=== PATIENT | female | born 1955 | race Hispanic/Latino ===

== ENCOUNTER 2018-05-11 19:49 | Emergency (ER) | payer BC, OTHER ==
[~2018-05-11] VITALS: Ht 157.5 cm; Wt 62.1 kg
[~2018-05-11 19:49] MED LIST: ASPIRIN ENTERI325 MG PO; BACTRIM DS TAB1 EACH PO; CIPRO500 MG PO; FLAGYL250 MG PO; LIPITOR20 MG PO; LOSARTAN POTAS100 MG PO; METRONIDAZOLE500 MG PO; NIFEDIPINE ER30 M1 PO; PEPCID20 MG PO; ULTRAM 50MG50 MG PO; ZOFRAN ODT4 MG PO; ZOFRAN ODT4 MG SL
[2018-05-11] MEDS ORDERED: SODIUM CHLORIDE 0.9% 1000ML 1,000 ML IV STA (20:06)
[2018-05-11] MEDS ORDERED: MORPHINE SULFATE INJ 4 MG/ML INJ IV STA (20:06)
[2018-05-11] MEDS ORDERED: ONDANSETRON HCL INJ 2 MG/ML VIAL IV STA (20:06)
[2018-05-11] MEDS ORDERED: ACETAMINOPHEN 325 MG TAB PO ONE (20:15)
[2018-05-11] MEDS ORDERED: DIATRIZOATE MEGL/DIATRIZOA SOD 30 ML BTL PO ONE ×2 (20:18→23:48)
[2018-05-11 20:41] LABS: BASOPHILS % 0.5 % (0.0-1.0); EOSINOPHILS % 0.3 % (0.0-6.0); HEMATOCRIT 39.3 % (34.2-44.1); HEMOGLOBIN 13.9 g/dL (12.0-16.0); LYMPHOCYTES # (AUTO) 2.1 (1.0-3.2); LYMPHOCYTES % 24.5 % (18.0-39.1); MEAN CORPUSCULAR HEMOGLOBIN 32.3 pg (28-32); MEAN CORPUSCULAR HGB CONC 35.4 g/dL (31-35); MEAN CORPUSCULAR VOLUME 91.2 fL (81-99); MONOCYTES # (AUTO) 0.5 (0.2-0.8); MONOCYTES % 5.9 % (4.4-11.3); NEUTROPHILS # (AUTO) 5.9 (2.1-6.9); NEUTROPHILS % 68.5 % (38.7-80.0); PLATELET COUNT 310 x10e3/uL (140-360); RED BLOOD COUNT 4.31 x10e6/uL (3.6-5.1); RED CELL DISTRIBUTION WIDTH 12.6 % (11.7-14.4)
[2018-05-11 21:03] LABS: INR 1.07; PROTHROMBIN TIME 13.1 seconds (11.9-14.5)
[2018-05-11 21:05] LABS: ALBUMIN 4.1 g/dL (3.5-5.0); ALBUMIN/GLOBULIN RATIO 1.3 (0.8-2.0); ANION GAP 14.9 mmol/L (8-16); CALCIUM 9.7 mg/dL (8.4-10.2); CREATININE, SERUM 1.15 mg/dL (0.57-1.11); POTASSIUM 3.9 mmol/L (3.5-5.1)
[2018-05-11 21:06] LABS: BILIRUBIN,URINE NEGATIVE (NEGATIVE); CLARITY,URINE CLEAR (CLEAR); COLOR,URINE YELLOW (YELLOW); KETONES,URINE NEGATIVE (NEGATIVE); LEUKOCYTE ESTERASE ,URINE TRACE (NEGATIVE); NITRITE,URINE NEGATIVE (NEGATIVE); PROTEIN,URINE DIPSTICK NEGATIVE (NEGATIVE); URINE UROBILINOGEN 0.2 mg/dL (0.2 - 1)
--- NOTE | 2018-05-11 21:07 | Diagnostic Imaging Report ---
EXAMINATION: CHEST SINGLE (PORTABLE) INDICATION: Stomach pain, nausea. COMPARISON: 12/15/2016 FINDINGS: TUBES and LINES: None. LUNGS: Lungs are well inflated. Lungs are clear. There is no evidence of pneumonia or pulmonary edema. PLEURA: No pleural effusion or pneumothorax. HEART AND MEDIASTINUM: The cardiomediastinal silhouette is unremarkable. BONES AND SOFT TISSUES: No acute osseous lesion. Soft tissues are unremarkable. UPPER ABDOMEN: No free air under the diaphragm. IMPRESSION: No acute thoracic abnormality. Signed by: Dr. Henry Sneed M.D. on 05/11/2018 9:04 PM
[2018-05-11 21:19] LABS: BACTERIA,URINE RARE /HPF; EPITHELIAL CELLS,URINE FEW /LPF; RBC,URINE 0-5 /HPF (0-5)
--- NOTE | 2018-05-11 22:15 | Diagnostic Imaging Report ---
EXAM: CT Abdomen and Pelvis WITH contrast INDICATION: Evaluation for diverticulitis COMPARISON: None. TECHNIQUE: Abdomen and pelvis were scanned utilizing a multidetector helical scanner from the lung base to the pubic symphysis after administration of IV contrast. Coronal and sagittal reformations were obtained. Routine protocol was performed. Scan was performed when during portal venous phase. IV CONTRAST: 100 mL of Isovue-370 ORAL CONTRAST: Gastrografin RADIATION DOSE: Total DLP: 256.45 mGy*cm Estimated effective dose: (DLP x 0.015 x size factor) mSv using radiation dose reduction techniques. COMPLICATIONS: None FINDINGS: LINES and TUBES: None. LOWER THORAX: Unremarkable HEPATOBILIARY: No focal hepatic lesions. No biliary ductal dilation. GALLBLADDER: No radio-opaque stones or sludge. No wall thickening. SPLEEN: No splenomegaly. PANCREAS: No focal masses or ductal dilatation. ADRENALS: No adrenal nodules KIDNEYS/URETERS: Kidneys enhance symmetrically. No hydronephrosis. 1.2 cm simple cyst in the upper pole of the right kidney. No stones. GI TRACT: No abnormal distention, wall thickening, or evidence of bowel obstruction. There are diverticula within the colon without evidence of diverticulitis. Appendix is normal. PELVIC ORGANS/BLADDER: Unremarkable. LYMPH NODES: No lymphadenopathy. VESSELS: There is mild atherosclerotic disease in the aorta and major arterial branches. PERITONEUM / RETROPERITONEUM: No free air or fluid. BONES: Unremarkable. SOFT TISSUES: Unremarkable. IMPRESSION: 1. No acute intra-abdominal or pelvic abnormality. 2. Specifically, no evidence of diverticulitis. Signed by: Dr. Henry Sneed M.D. on 05/11/2018 10:12 PM
[2018-05-11 23:37] VITALS: BP 156/84
[2018-05-11] MEDS ORDERED: SODIUM CHLORIDE 0.9% 50ML 50 ML ONE (23:48)
[2018-05-11] MEDS ORDERED: IOPAMIDOL 370 MG/ML 200 ML INFUS..BTL INJ ONE (23:48)
== END 2018-05-11 23:44 | disposition home or self-care (01) ==
LOC: ER 19:49
DX: R10.84 Generalized abdominal pain (principal); R11.0 Nausea; R19.7 Diarrhea, unspecified; N30.90 Cystitis, unspecified without hematuria; I10 Essential (primary) hypertension; Z87.19 Personal history of other diseases of the digestive system
CPT/HCPCS: 36415; 71045; 74177; 80053; 81001; 82150; 82550; 82553; 83605; 83690; 83880; 84484; 85025; 85610; 85730; 87040; 87086; 93005; 99284; J2270; J2405; J7030; Q9967

== ENCOUNTER 2018-12-02 15:29 | Observation (INO) | payer MEDICARE, OTHER ==
[~2018-12-02] VITALS: Ht 162.6 cm; Wt 64.1 kg
--- OUTSIDE RECORDS SUMMARY | 2018-12-02 15:31 | XMS REPORT ---
Author [facility] Address Unknown Phone Unavailable Care Team Providers Care Chart Picker Name Role Phone Ace RODRIGUEZ Unavailable Unavailable Problems This patient has no known problems. Allergies, Adverse Reactions, Alerts This patient has no known allergies or adverse reactions. Medications This patient has no known medications. Results Test Description Test Time Test Comments Text Results Atomic Results Result Comments CT ABDOMEN/PELVIS W 2018-05-11 22:08:00 [place] [address] Patient Name: DIVINE VILLATORO R MR #: [id number] : 1955 Age/Sex: 62/F Req #: [id number] Adm Physician: Ordered by: MADDI JENSEN OPERA SINGER Report #: [id number] Location: ER Room/Bed: Procedure: [id number] CT/CT ABDOMEN/PELVIS W Exam Date: Exam Time: REPORT STATUS: Signed EXAM: CT Abdomen and Pelvis WITH contrast INDICATION: Evaluation for diverticulitis COMPARISON: None. TECHNIQUE: Abdomen and pelvis were scanned utilizing a multidetector helical scanner from the lung base to the pubic symphysis after administration of IV contrast. Coronal and sagittal reformations were obtained. Routine protocol was performed. Scan was performed when during portal venous phase. IV CONTRAST: 100 mL of Isovue-370 ORAL CONTRAST: Gastrografin RADIATION DOSE: Total DLP: 256.45 mGy*cm Estimated effective dose: (DLP x 0.015 x size factor) mSv using radiation dose reduction techniques. COMPLICATIONS: None FINDINGS: LINES and TUBES: None. LOWER THORAX: Unremarkable HEPATOBILIARY: No focal hepatic lesions. No biliary ductal dilation. GALLBLADDER: No radio-opaque stones or sludge. No wall thickening. SPLEEN: No splenomegaly. PANCREAS: No focal masses or ductal dilatation. ADRENALS: No adrenal nodules KIDNEYS/URETERS: Kidneys enhance symmetrically. No hydronephrosis. 1.2 cm simple cyst in the upper pole of the right kidney. No stones. GI TRACT: No abnormal distention, wall thickening, or evidence of bowel obstruction. There are diverticula within the colon without evidence of diverticulitis. Appendix is normal. PELVIC ORGANS/BLADDER: Unremarkable. LYMPH NODES: No lymphadenopathy. VESSELS: There is mild atherosclerotic disease in the aorta and major arterial branches. PERITONEUM / RETROPERITONEUM: No free air or fluid. BONES: Unremarkable. SOFT TISSUES: Unremarkable. IMPRESSION: 1. No acute intra-abdominal or pelvic abnormality. 2. Specifically, no evidence of diverticulitis. Signed by: Dr. Henry Sneed M.D. on 05/11/2018 10:12 PM Dictated By: HENRY BERRY MD 11 Transcribed By: LILLIE on 05/11/182211 COPY TO: MADDI JENSEN NP CHEST SINGLE (PORTABLE) 2018-05-11 21:03:00 [place] [address] Patient Name: DIVINE VILLATORO MR #: [id number] : 1955 Age/Sex: 62/F Req #: [id number] Adm Physician: Ordered by: MADDI JENSEN NP Report #: [id number] Location: ER Room/Bed: Procedure: [id number] DX/CHEST SINGLE (PORTABLE) Exam Date: 05/11/18 Exam Time: 2029 REPORT STATUS: Signed EXAMINATION: CHEST SINGLE (PORTABLE) INDICATION: Stomach pain, nausea. COMPARISON: 12/15/2016 FINDINGS: TUBES and LINES: None. LUNGS: Lungs are well inflated. Lungs are clear. There is no evidence of pneumonia or pulmonary edema. PLEURA: No pleural effusion or pneumothorax. HEART AND MEDIASTINUM: The cardiomediastinal silhouette is unremarkable. BONES AND SOFT TISSUES: No acute osseous lesion. Soft tissues are unremarkable. UPPER ABDOMEN: No free air under the diaphragm. IMPRESSION: No acute thoracic abnormality. Signed by: Dr. Henry Sneed M.D. on 05/11/2018 9:04 PM Dictated By: HENRY BERRY MD 03 Transcribed By: LILLIE on 05/11/182103 COPY TO: MADDI JENSEN NP
--- OUTSIDE RECORDS SUMMARY | 2018-12-02 15:31 | XMS REPORT | Encounter Summary ---
Author Organization Unknown Address [address] [place] [id number] Phone [phone] Care Team Providers Care Department Editor Name Role Phone Dr. Wade Olivo 3 [phone] Walt Gimenez MD 2 [phone] Kevin Rios 107 [phone] Reason for Visit sore throat; UTI; body aches Instructions 1. Upper respiratory infection Kenalog 40 mg/mL suspension for injection Tessalon Perles 100 mg capsule 2. Acute urinary tract infection urinalysis, dipstick urinalysis complete, reflex culture ciprofloxacin 500 mg tablet 3. Influenza vaccination declined 4. Immunization refused 5. Body mass index 25-29 - overweight aprenda acerca del peso saludable - [learning about healthy weight] 6. Screening for malignant neoplasm of cervix gynecology referral 7. Fever rapid strep group A, throat rapid flu (A+B) Discussion Note: None recorded. Plan of Care Reminders Provider Appointments None recorded. Lab Urinalysis, Dipstick 11/29/2018 [facility] [place] Rapid Strep Group a, Throat 11/29/2018 [facility]) [place] Rapid Flu (A+B) 11/29/2018 [facility] Urinalysis Complete, Reflex Culture 11/29/2018 [facility] Laboratory Referral Gynecology Referral 11/29/2018 Procedures None recorded. Surgeries None recorded. Imaging None recorded. Medications Name Start Date amlodipine 5 mg-benazepril 20 mg capsule Take 1 capsule every day by oral route. ciprofloxacin 500 mg tablet Take 1 tablet every 12 hours by oral route as directed for 10 days. fenofibrate nanocrystallized 145 mg tablet Take 1 tablet every day by oral route. Tessalon Perles 100 mg capsule Take 1 capsule 3 times a day by oral route as needed for 10 days. Medications Administered None recorded. Vitals Height Weight BMI Blood Pressure 5 ft 1.5 in 138.6 lbs 25.8 kg/m2 (1) 142/90 mm[Hg] (2) 118/80 mm[Hg] Lab Results None recorded. Allergies Code Code System Name Reaction Severity Status Onset NKDA Problems Name Status Onset Date Source Primary Hypertriglyceridemia Active Hypertensive Disorder Active Numbness Active External Procedures Date Name Performed by 09/24/2017 Hysterectomy (Total) Information not available 09/24/2015 Colonoscopy with Biopsy Information not available Vaccine List Vaccine Type influenza, unspecified formulation 06/19/2016 Social History Smoking Status Never Smoker Past Encounters 11/29/2018 Upper Respiratory Infection; Acute Urinary Tract Infection; Influenza Vaccination Declined; Immunization Refused; Body Mass Index 25-29 - Overweight; Screening for Malignant Neoplasm of Cervix; Fever Wade Jan Lee MD: [address] [place] [address], Ph. History of Present Illness Note:Pt is complaining of runny nose,nasal congestion, sore throat and fever not quantified since 3 days ago. Denies cough, sob, wheezing or chest pain.<div>She is also complaining of dysuria, urinary frequency, urgency and suprapubic pain since 3 days ago. Denies hematuria.</div> Review of Systems:ROS as noted in the HPI Review of Systems None recorded. Physical Exam General Adult Exam (male) Reported By: Patient Constitutional: General Appearance: healthy-appearing. Level of Distress: NAD Eyes: Lids and Conjunctivae: non-injected, no discharge. EOM: EOMI ENMT: Ears: TMs clear. Nose: nares non-patent, nasal discharge, post nasal drip. Lips, Teeth, and Gums: no mouth or lip ulcers. Oropharynx: moist mucous membranes, no exudates, erythema Neck: Neck: supple, trachea midline. Lymph Nodes: cervical LAD. Thyroid: no enlargement, non-tender Lungs: Auscultation: breath sounds normal Cardiovascular: Heart Auscultation: RRR, normal S1, normal S2, no murmurs. Neck vessels: no carotid bruits Abdomen: Inspection and Palpation: soft, non-distended, no guarding, no rebound tenderness, no CVA tenderness, suprapubic tenderness. Liver: non-tender, no hepatomegaly. Spleen: non-tender, no splenomegaly Neurologic: Gait and Station: normal gait Skin: Inspection and palpation: no rash, no lesions
[2018-12-02 16:09] LABS: BASOPHILS % 0.5 % (0.0-1.0); EOSINOPHILS % 0.1 % (0.0-6.0); HEMATOCRIT 45.8 % (34.2-44.1); HEMOGLOBIN 15.8 g/dL (12.0-16.0); LYMPHOCYTES # (AUTO) 1.6 (1.0-3.2); LYMPHOCYTES % 21.3 % (18.0-39.1); MEAN CORPUSCULAR HEMOGLOBIN 31.8 pg (28-32); MEAN CORPUSCULAR HGB CONC 34.5 g/dL (31-35); MEAN CORPUSCULAR VOLUME 92.2 fL (81-99); MONOCYTES # (AUTO) 0.4 (0.2-0.8); MONOCYTES % 5.8 % (4.4-11.3); NEUTROPHILS # (AUTO) 5.4 (2.1-6.9); NEUTROPHILS % 71.8 % (38.7-80.0); PLATELET COUNT 340 x10e3/uL (140-360); RED BLOOD COUNT 4.97 x10e6/uL (3.6-5.1); RED CELL DISTRIBUTION WIDTH 13.7 % (11.7-14.4)
[2018-12-02 16:23] LABS: INR 0.8; PARTIAL THROMBOPLASTIN TIME 27.6 seconds (23.8-35.5); PROTHROMBIN TIME 11.5 seconds (11.9-14.5)
[2018-12-02 16:32] LABS: ALBUMIN 4.4 g/dL (3.5-5.0); ALBUMIN/GLOBULIN RATIO 1.2 (0.8-2.0); ANION GAP 14.6 mmol/L (8-16); CALCIUM 10.5 mg/dL (8.4-10.2); CREATININE, SERUM 0.96 mg/dL (0.57-1.11); POTASSIUM 3.6 mmol/L (3.5-5.1)
[2018-12-02 17:23] LABS: BILIRUBIN,URINE NEGATIVE (NEGATIVE); CLARITY,URINE SL CLOUDY (CLEAR); COLOR,URINE YELLOW (YELLOW); KETONES,URINE NEGATIVE (NEGATIVE); LEUKOCYTE ESTERASE ,URINE TRACE (NEGATIVE); NITRITE,URINE NEGATIVE (NEGATIVE); PROTEIN,URINE DIPSTICK NEGATIVE (NEGATIVE); URINE UROBILINOGEN 0.2 mg/dL (0.2 - 1)
[2018-12-02 17:35] LABS: BACTERIA,URINE MANY /HPF; WBC,URINE (MAN) 0-5 /HPF (0-5)
--- NOTE | 2018-12-02 17:40 | Diagnostic Imaging Report ---
Exam: Head CT without contrast History: Mini strokes Comparison studies: No prior exams are available on the PACS for comparison at the time of dictation. Technique: Axial images were obtained from the skull base to the vertex. Coronal and sagittal images reconstructed from the axial data. Dose modulation, iterative reconstruction, and/or weight based adjustment of the mA/kV was utilized to reduce the radiation dose to as low as reasonably achievable. Radiation dose: Total DLP: 728 mGy*cm. Estimated effective dose: DLP x 0.015 Intravenous contrast: None Findings: Scalp: No abnormalities. Bones: No fractures, blastic or lytic lesions. Brain sulci: Appropriate for age. Ventricles: Normal in size and configuration. No hydrocephalus. Extra-axial spaces: No masses, no fluid collection. Parenchyma: No abnormal densities. No masses, acute hemorrhage, acute or chronic vascular insults. Sellar/suprasellar region: No abnormalities. Craniocervical junction: Patent foramen magnum. No Chiari one malformation. Incidental findings: Atherosclerotic calcifications in the carotid siphons. IMPRESSION: No intracranial abnormalities. Signed by: Dr. Antolin Mckeon M.D. on 12/02/2018 5:37 PM
[2018-12-02] MEDS ORDERED: SODIUM CHLORIDE FLUSH 10 ML SYR INJ PRN (18:30)
--- NOTE | 2018-12-02 23:00 | NUR ---
S/W BRAD HARDY AT DR[facility]. ORDER RECEIVED FOR BP MEDS.
[2018-12-02 23:15] VITALS: BP 147/76
[2018-12-02] MEDS ORDERED: HYDRALAZINE HCL 20 MG/ML VIAL IV PRN (23:15)
--- NOTE | 2018-12-02 23:15 | NUR ---
patient is a new admit that arrived via wheelchair. patient is awake and talking. patient has been helped into the bed. bed is in lowest position and call gerardo is within reach. will continue to monitor patient.
[2018-12-03] VITALS (7 sets, daily range): BP systolic 131–160; BP diastolic 72–80
[2018-12-03] MEDS ORDERED: INFLUENZA VIRUS VAC SPLIT INJ 0.5 ML SYR IM ONE (05:45)
[2018-12-03] MEDS ORDERED: PNEUMOCOCCAL VACCINE POLYVALENT 23 MCG/0.5 ML VIAL IM ONE (06:00)
--- NOTE | 2018-12-03 06:04 | NUR ---
patient has been given pneumococall vaccine per facility policy. vaccine given in right deltoid muscle.
--- NOTE | 2018-12-03 07:15 | NUR ---
patient has been given flu shot in left deltoid muscle.
[2018-12-03] MEDS ORDERED: SODIUM CHLORIDE 0.9% 1000ML 1,000 ML ONE (08:14)
[2018-12-03] MEDS ORDERED: CEFTRIAXONE SOD 1 GM VIAL IV SCH (09:30)
[2018-12-03] MEDS: ASPIRIN 325 MG TAB EC PO SCH (09:40)
[2018-12-03] MEDS ORDERED: ACETAMINOPHEN 325 MG TAB PO PRN (09:45)
[2018-12-03] MEDS ORDERED: ONDANSETRON HCL INJ 2MG/ML 2ML 2 MG/ML VIAL IV PRN (09:45)
[2018-12-03] MEDS ORDERED: ACETAMINOPHEN/CODEINE 300MG - 30MG TAB PO PRN (10:00)
[2018-12-03 10:27] LABS: CREATINE KINASE MB 0.8 ng/mL (0-5.0)
[2018-12-03] MEDS: CEFTRIAXONE SOD 1 GM/NS 50 ML 50 ML IV SCH (11:00)
[2018-12-03] MEDS ORDERED: SODIUM CHLORIDE 0.9% 250ML 250 ML ONE (11:32)
--- NOTE | 2018-12-03 11:44 | Diagnostic Imaging Report ---
Examination: MRI BRAIN WITHOUT CONTRAST History: Numbness and weakness of the right side. TIA. Comparison studies: Head CT performed December 02, 2018. Technique: Sagittal T2; axial DWI, FLAIR, GRE or SWI, T1, Coronal FLAIR. Intravenous contrast: None Findings: Scalp: No abnormal signal. No masses. Bone marrow: Normal in signal intensity. Brain volume: Adequate for age. No volume loss. Ventricles: Normal in size and configuration. No hydrocephalus. Extra-axial spaces: No abnormalities. Parenchyma: No masses, hemorrhage, acute or chronic vascular insults. Suprasellar and sellar region: Partially CSF filled sella. Craniocervical junction: No abnormalities. The foramen magnum is patent. No Chiari malformations. Vessels: Normal flow-voids in the arteries and sinuses. Additional findings:None. IMPRESSION: No acute intracranial abnormalities, specifically, no acute infarct. Signed by: Dr. Doreen Monique M.D. on 12/03/2018 11:41 AM
[2018-12-03] MEDS ORDERED: LOSARTAN POTASSIUM 100 MG TAB PO SCH (12:30)
[2018-12-03] MEDS: FAMOTIDINE 20 MG TAB PO SCH (17:53)
--- NOTE | 2018-12-03 19:00 | NUR ---
received report from day nurse. patient is resting comfortably in bed. bed is in lowest position and call gerardo is within reach. will continue to monitor patient.
[2018-12-03] MEDS ORDERED: ATORVASTATIN 40 MG TAB PO SCH (21:00)
[2018-12-03] MEDS: NIFEDIPINE CR 30 MG TAB PO SCH (22:24)
[2018-12-04] VITALS: BP 134/80
--- NOTE | 2018-12-04 02:08 | Consultation ---
DATE OF CONSULTATION: 12/03/2018 Neurology Consult Note HISTORY OF PRESENT ILLNESS: Ms. Latham is a 62-year-old ijfod-lurg-rzdjxbqz woman with past medical history significant for hypertension and hyperlipidemia, admitted to [facility] on December 02, 2018, with symptoms suspicious for transient ischemic attack. On the day of admission, the patient experienced the abrupt onset of dizziness, which is further described as lightheadedness, nausea, numbness over the right side of the face and right arm, and right leg weakness. Ms. Latham does not report a visual field cut or other disturbance, dysarthria, or aphasia associated with the above symptoms. She does not report confusion associated with the above symptoms. The patient does endorse poor balance with gait impairment. The above-described symptoms lasted for approximately 30 minutes, then spontaneously resolved. Ms. Latham telephones her primary care physician regarding these symptoms. She was instructed to proceed to the emergency center at [facility] for further evaluation of her symptoms. While sitting in the waiting room at [facility], the patient experienced a recurrence of the above symptoms. The duration of the symptoms is unknown. Ms. Latham does report having a mild diffuse headache yesterday. Upon arrival in the emergency center, the patient was afebrile with a blood pressure of 149/105 mmHg and a pulse of 88 beats per minute. The patient's neurological examination was documented as being nonfocal. While in the emergency center, Ms. Latham underwent a CT of the brain without contrast. This study did not reveal evidence of recent large territorial ischemia or hemorrhage. Ms. Latham was admitted to [facility] under observation status for further evaluation and treatment. Ms. Latham was previously taking aspirin 325 mg by mouth daily. However, due to recent gastrointestinal symptoms, her primary care doctor instructed her to discontinue this medication pending an esophagogastroduodenoscopy. Ms. Latham has not taken aspirin in approximately 3 weeks. REVIEW OF SYSTEMS: Nausea, numbness over the right side of the face, numbness over the right arm, weakness of the right leg, impairment of balance and gait, dizziness which is further described as lightheadedness, and headache. Otherwise, a 12-point review of systems is negative. PAST MEDICAL HISTORY: Hypertension, hyperlipidemia, gastroesophageal reflux disease. PAST SURGICAL HISTORY: Suspension of the uterus. PAST HOSPITALIZATIONS: Surgeries/procedures as listed, childbirth x4, hypertensive emergency in 2018. FAMILY MEDICAL HISTORY: Hypertension and hyperlipidemia. The patient's father and mother are both from coronary artery disease with myocardial infarctions. Ms. Latham has a sister who is alive, but has coronary artery disease status post CABG as well as right carotid artery stenosis status post right carotid endarterectomy. Ms. Latham has other siblings, 3 brothers and 3 sisters, who are alive and healthy. The patient has 4 children, all girls, who are alive and healthy. SOCIAL HISTORY: Ms. Latham is . She is retired. The patient does not report current or prior tobacco, alcohol, or recreational drug use. HOME MEDICATIONS: Nifedipine ER 30 mg by mouth every 12 hours, losartan 50 mg by mouth daily, atorvastatin 40 mg by mouth at bedtime daily, Pepcid 20 mg by mouth twice daily. ALLERGIES: NO KNOWN DRUG ALLERGIES. NO KNOWN FOOD ALLERGIES. NO KNOWN ALLERGIES TO LATEX. NO KNOWN ALLERGIES TO IODINE OR OTHER CONTRAST MATERIALS. PHYSICAL EXAMINATION: VITAL SIGNS: Height 64 inches, weight 140 pounds, BMI 24.0 kg/m2, blood pressure 160/77 mmHg, pulse 82 beats per minute, respiratory rate 18 breaths per minute, oxygen saturation 95% on room air. GENERAL: The patient is awake and alert, does not appear distressed. HEENT: Normocephalic, atraumatic. Pupils are equal, round, and reactive to light. Moist mucous membranes. NECK: Supple. No appreciable thyromegaly. No appreciable carotid bruits. CARDIOVASCULAR: S1, S2, regular rate and rhythm. No murmurs, rubs, or gallops. RESPIRATORY: Clear to auscultation bilaterally. No wheezes, rhonchi, or rales. EXTREMITIES: The skin is warm and dry. No clubbing, cyanosis, or edema. The posterior tibial and dorsalis pedis pulses are 2+ and symmetric. SKIN: No rashes or lesions. NEUROLOGIC: Memory/Attention: The patient is awake and alert, oriented to person, place, time, and situation. Cranial Nerves: Cranial nerve I - not tested. Cranial nerve II, III, IV and - pupils are equal and round, reactive briskly to light (from 4 mm to 2 mm). Extraocular movements intact. No nystagmus. Cranial nerve V - sensation to light touch and pinprick is intact in the bilateral V1 through V3 distributions. Strength in the temporalis and masseter muscles are within normal limits. Cranial nerve VII - the face is symmetric as are all facial movements. Strength is within normal limits. Cranial nerve VIII - hearing is intact to finger rub bilaterally. Cranial nerve IX, X - the soft palate elevates equally and symmetrically. Cranial nerve XI - normal strength to the bilateral sternocleidomastoid and trapezius muscles. Cranial nerves XII - the tongue protrudes to midline and moves symmetrically from side to side. Strength: Bulk is normal. Strength is 5/5 in the bilateral deltoids, biceps, triceps, wrist flexors and extensors, finger flexors and extensors, intrinsic hand muscles, hip flexors, knee flexors and extensors, ankle dorsiflexion and plantar flexion, and intrinsic foot muscles. Tone is normal. DTRs: Deep tendon reflexes are 1+ and symmetric at the triceps, biceps, brachioradialis, patellas, and Achilles. Plantar responses are flexor bilaterally. Sensation: Sensation is intact to light touch and pinprick in both arms and both legs. Cerebellar: Yzekaf-rada-kbbukj and heel-kelsey movements are intact without dysmetria or other impairment. Gait: Deferred. Speech: Spontaneous speech is normal without appreciable dysarthria or aphasia. Repetition is intact. Involuntary movements: None. Pronator Drift: None. LABORATORY DATA: A comprehensive metabolic panel is significant for an estimated GFR of 59, an elevated serum glucose of 145, a mildly elevated serum calcium of 10.5, an elevated total protein of 8.2, and an elevated globulin of 3.8. Cardiac enzymes are negative x1. The CBC with differential and platelets is unremarkable. PT is 11.5. INR is 0.80. PTT is 27.6. A urinalysis is significant for slightly cloudy urine with 1+ blood, trace leukocyte esterase, and many urine bacteria. A urine culture is pending. DIAGNOSTIC STUDIES: CT of the brain without contrast 12/02/2018: On my review, there is no evidence of recent large territorial ischemia, hemorrhage, mass, or mass effect. Cerebral volumes are appropriate for age. There is no evidence of chronic small vessel ischemic disease. Electrocardiogram of 12/02/2018: Sinus rhythm at 76 beats per minute with a prolonged QT interval. Echocardiogram of 12/03/2018: Ejection fraction of 55% to 60%. Trace aortic insufficiency and mitral regurgitation. Bilateral carotid artery ultrasound with Doppler of 12/03/2018: There is no atherosclerosis in the right carotid artery system. There is atherosclerosis without hemodynamically significant stenosis in the left internal carotid artery. Flow is antegrade in the bilateral vertebral arteries. MRI of the brain without contrast of 12/03/2018: On my review, there is no evidence of recent or remote large territorial ischemia, hemorrhage, mass, or mass effect. Cerebral volumes are appropriate for age. There are a few scattered, nonspecific T2/FLAIR hyperintense foci of the supratentorial deep white matter compatible with mild chronic small vessel ischemic disease. ASSESSMENT AND PLAN: Ms. Latham is a 62-year-old vkspv-dfhx-zzeigthq woman with vascular risk factors, off antiplatelet therapy for approximately 3 weeks, admitted to [facility] on December 02, 2018, with a transient ischemic attack. At present, the patient's neurological examination is nonfocal. The patient's laboratory data and other diagnostic studies have been reviewed and are documented above. RECOMMENDATIONS: Are as follows: 1. A lipid panel and hemoglobin A1c will be ordered to complete stroke evaluation. 2. Continue treatment with aspirin 325 mg by mouth daily for stroke prophylaxis. 3. The patient's goal blood pressure is less than 140/90 mmHg. Treatment with the patient's home antihypertensive medications will be resumed. Monitor vital signs per unit protocol and adjust medications accordingly. 4. The patient's goal total cholesterol is less than 200 with an LDL of less than 70. Follow up the results of the lipid panel. In the interim, treatment with the patient's home medication of atorvastatin 40 mg by mouth at bedtime daily will be continued. 5. The patient's goal hemoglobin A1c is less than 7.0. Follow up this result. Tight glycemic control is recommended while the patient is hospitalized. 6. Speech and Physical Therapy consultations will be deferred as the patient has no current deficits. 7. GI prophylaxis with Pepcid 20 mg by mouth twice daily with meals. DVT prophylaxis with Lovenox 40 mg subcutaneously daily. 8. Defer treatment of the remaining medical comorbidities to the primary and other services following the patient. 9. Anticipated discharge to home with no needs on December 04, 2018. Thank you for this consultation. I will continue to follow the patient while she remains in the hospital. TIME SPENT: 50 minutes. Jerilyn Virgen MD CP/LUDMILA /[id number] MTDD
[2018-12-04 04:00] VITALS: BP 129/64
[2018-12-04 05:43] LABS: BASOPHILS # (AUTO) 0.1 (0.0-0.1); BASOPHILS % 0.9 % (0.0-1.0); EOSINOPHILS % 0.6 % (0.0-6.0); HEMATOCRIT 41.3 % (34.2-44.1); HEMOGLOBIN 14.1 g/dL (12.0-16.0); LYMPHOCYTES # (AUTO) 1.7 (1.0-3.2); LYMPHOCYTES % 24.5 % (18.0-39.1); MEAN CORPUSCULAR HEMOGLOBIN 31.7 pg (28-32); MEAN CORPUSCULAR HGB CONC 34.1 g/dL (31-35); MEAN CORPUSCULAR VOLUME 92.8 fL (81-99); MONOCYTES # (AUTO) 0.6 (0.2-0.8); MONOCYTES % 8.3 % (4.4-11.3); NEUTROPHILS # (AUTO) 4.5 (2.1-6.9); PLATELET COUNT 279 x10e3/uL (140-360); RED BLOOD COUNT 4.45 x10e6/uL (3.6-5.1); RED CELL DISTRIBUTION WIDTH 13.5 % (11.7-14.4)
[2018-12-04 05:54] LABS: ANION GAP 10.9 mmol/L (8-16); CHOL/HDL RATIO 7.2 (3.0-3.6); CREATININE, SERUM 1.04 mg/dL (0.57-1.11); MAGNESIUM 2.3 MG/DL (1.3-2.1); POTASSIUM 3.9 mmol/L (3.5-5.1)
[2018-12-04 06:13] LABS: B-TYPE NATRIURETIC PEPTIDE2 < 10.0 pg/mL (0-100)
--- NOTE | 2018-12-04 07:10 | NUR ---
Walking rounds done. Patient is awake and alert x3 in NAD. Tele#26, SB@59. POC discussed. Patient was instructed to call for assistance and verbalized understanding.
--- NOTE | 2018-12-04 07:17 | NUR ---
report given to day nurse. patient is resting comfortably in bed. bed is in lowest position and call gerardo is within reach.
[2018-12-04 08:00] VITALS: BP 129/64
[2018-12-04 08:18] VITALS: BP 119/66
[2018-12-04] MEDS ORDERED: LOSARTAN POTASSIUM 100 MG TAB PO SCH (09:00)
[2018-12-04] MEDS ORDERED: CEFUROXIME250 MG PO (09:28)
[2018-12-04] MEDS: FAMOTIDINE 20 MG TAB PO SCH (09:44)
[2018-12-04] MEDS: ASPIRIN 325 MG TAB EC PO SCH (09:44)
[2018-12-04] MEDS: CEFTRIAXONE SOD 1 GM/NS 50 ML 50 ML IV SCH (09:45)
[2018-12-04] MEDS: NIFEDIPINE CR 30 MG TAB PO SCH (09:45)
[2018-12-04 12:21] VITALS: BP 115/71
--- NOTE | 2018-12-04 12:45 | NUR ---
Patient discharged home with written instructions and prescriptions. Patient verbalized understanding. IV dc'd, cath intact and small dressing applied.
[2018-12-04] MEDS ORDERED: ENOXAPARIN SOD INJ 40 MG/0.4 ML SYR SC SCH (17:00)
--- NOTE | 2018-12-06 03:09 | Discharge Summary ---
ADMISSION DIAGNOSES: Transient ischemic attack, hypertensive emergency, hyperlipidemia, urinary tract infection, hypercalcemia, and acute kidney injury. DISCHARGE DIAGNOSES: Transient ischemic attack, hypertensive emergency, hyperlipidemia, urinary tract infection, hypercalcemia, and acute kidney injury. HISTORY: The patient has a history of TIA; hypertension; hyperlipidemia; mitral, tricuspid, and pulmonary regurg. SURGICAL HISTORY: None. FAMILY HISTORY: The patient's grandpa, mom, and sister had a stroke. The patient's mom and sister had a heart attack. SOCIAL HISTORY: Noncontributory. HOSPITAL COURSE: A 62-year-old female complains of right-sided weakness that occurred yesterday while cleaning the house. The episode lasted for 2 hours. She complains of nausea, but denies dizziness, shortness of breath, emesis, and fever. Nothing improves or worsens the symptoms. The episode resolved spontaneously. She had a very similar episode on Sunday before admission that lasted about 10 minutes. Her systolic blood pressure on day of admission was in the 130s. The patient had a CT of the brain, which was negative, and MRI of the brain, which was also negative. UA came back with trace leukocytes and bacteria. The patient was started on Ceftin and Rocephin. The patient was advised to improve her eating habits to a low-cholesterol and low-fat diet. Urology was consulted, who cleared the patient for discharge as she is asymptomatic. Vital signs stable, patient afebrile. She will discharge home on nifedipine, losartan, Pepcid, Lipitor, aspirin, and 4 more days of Ceftin. She will follow up with primary care in 1 to 2 weeks. The patient understands discharge instructions and agrees to plan. Dictated by Rachel Arita NP MD GINNY Curtis/MODL /[id number]
== END 2018-12-04 12:44 | disposition home or self-care (01) ==
LOC: ER 15:29 → ERHOLD 18:26 → IMCU 23:20
PROVIDERS: ADMIT Internal Medicine; ATTEND Internal Medicine
DX: G45.9 Transient cerebral ischemic attack, unspecified (principal); I16.1 Hypertensive emergency; I10 Essential (primary) hypertension; E78.5 Hyperlipidemia, unspecified; Z95.5 Presence of coronary angioplasty implant and graft; N39.0 Urinary tract infection, site not specified; N17.9 Acute kidney failure, unspecified; E83.52 Hypercalcemia; Z86.73 Personal history of transient ischemic attack (TIA), and cerebral infarction without residual deficits; Z82.3 Family history of stroke
CPT/HCPCS: 36415 ×3; 70450; 70551; 80048; 80053; 80061; 81001; 82550; 82553; 83036; 83735; 83880; 84484; 85025 ×2; 85610; 85730; 87086; 87186; 93005; 93306; 93880; 99284; G0378 ×3; J0696 ×2; J7030; J7050; J0360

== ENCOUNTER → 2020-05-17 | Outpatient (CLI) | payer MEDICARE, OTHER ==
[~2020-05-17] MED LIST changes: +ALENDRONATE SOD70 MG PO; +AMLODIPINE BESY10 MG PO; +ASPIRIN81 MG PO; +ATORVASTATIN CA20 MG PO; +CEFUROXIME250 MG PO; +FENOFIBRATE145 MG PO
--- NOTE | 2020-05-17 13:02 | Diagnostic Imaging Report ---
Right knee, 3 views INDICATION: ^[id number] ^[id number] ^LEFT KNEE PAIN Comparison: None available. Discussion: Multiple views of the right knee are negative for an acute displaced fracture or dislocation. Negative for large suprapatellar joint effusion. Mild to moderate narrowing of the medial and patellofemoral compartments is noted with small osteophyte formation. Negative for [id number] articulation or periarticular sclerosis. Soft tissues are unremarkable. IMPRESSION: 1. Negative for acute displaced fracture or dislocation of the left knee. 2. Mild to moderate degenerative change of the medial and patellofemoral compartments. Signed by: Will Baldwin MD on 05/17/2020 12:58 PM
== END ==
LOC: RAD 11:47
PROVIDERS: ATTEND Family Medicine
DX: M25.562 Pain in left knee (principal)

== ENCOUNTER → 2020-06-23 | Outpatient (RCR) | payer MEDICARE, OTHER | LOC: PT 06-07 12:47 | PROVIDERS: ATTEND Specialist | DX: M17.12 Unilateral primary osteoarthritis, left knee (principal); M62.81 Muscle weakness (generalized) ==

== ENCOUNTER 2020-06-25 15:11 | Outpatient (RCR) | payer MEDICARE, OTHER | END 2020-07-24 | LOC: PT 15:11 | PROVIDERS: ATTEND Specialist | DX: M17.12 Unilateral primary osteoarthritis, left knee (principal) ==